=== PATIENT | female | born 1980 | race Hispanic/Latino ===

== ENCOUNTER 2019-10-05 17:43 | Emergency (ER) | payer OTHER, SELFPAY ==
[2019-10-06 17:14] LABS: SARS-CoV-2 MS2 Positive; SARS-CoV-2 N Gene Positive; SARS-CoV-2 S Gene Positive; SARS-CoV-2 orf1ab Positive
== END 2019-10-05 19:07 | disposition home or self-care (01) ==
LOC: MADERS 17:43
DX: U07.1 COVID-19 (principal); R05 Cough; R50.9 Fever, unspecified; Z79.899 Other long term (current) drug therapy
CPT/HCPCS: 87635; 99283; U0003

== ENCOUNTER 2020-01-03 18:05 | Emergency (ER) | payer SELFPAY | END 2020-01-03 18:50 | disposition home or self-care (01) | LOC: MADERS 18:05 | DX: M26.603 Bilateral temporomandibular joint disorder, unspecified (principal) | CPT/HCPCS: 99282 ==

== ENCOUNTER 2020-02-29 17:35 | Emergency (ER) | payer SELFPAY ==
[2020-02-29] MEDS ORDERED: predniSONE 20 MG TAB ONE (18:15)
== END 2020-02-29 18:25 | disposition home or self-care (01) ==
LOC: MADERS 17:35
DX: L25.9 Unspecified contact dermatitis, unspecified cause (principal); R60.0 Localized edema
CPT/HCPCS: 99282; J7512

== ENCOUNTER 2020-03-12 12:40 | Emergency (ER) | payer SELFPAY ==
[2020-03-12] MEDS ORDERED: Sulfameth/Trimethoprim DS 800-160mg TAB ONE (13:08)
== END 2020-03-12 13:14 | disposition home or self-care (01) ==
LOC: MADERS 12:40
DX: S61.501D Unspecified open wound of right wrist, subsequent encounter (principal); L03.113 Cellulitis of right upper limb
CPT/HCPCS: 99283

== ENCOUNTER 2021-09-25 11:53 | Emergency (ER) | payer SELFPAY ==
[2021-09-25] MEDS ORDERED: Iopamidol 370 76% 100 ML VIAL ONE (12:52)
[2021-09-25 13:00] LABS: ALT (SGPT) 31 U/L (8-55); AST (SGOT) 26 U/L (5-34); Albumin 4.3 g/dL (3.5-5.0); Alkaline Phosphatase 67 U/L (40-110); Anion Gap 17 mmol/L (10-20); BUN (Urea Nitrogen) 10 mg/dL (7.0-18.7); Bilirubin, Total 1.3 mg/dL (0.2-1.2); Calc. Creatinine Clearance 0 mL/min (70-130); Calcium 9.2 mg/dL (7.8-10.44); Carbon Dioxide 22 mmol/L (22-29); Chloride 106 mmol/L (98-107); Globulin 3.5 g/dL (2.4-3.5); Glucose 110 mg/dL (70-105); Lipase 7 U/L (8-78); Protein, Total 7.8 g/dL (6.0-8.3); Sodium 142 mmol/L (136-145)
[2021-09-25 13:01] LABS: BHCG - Serum Negative (NEGATIVE); Pregs Control Background? CLEAR/WHITE (CLR/WHITE); Pregs Control Bar Appear? YES (CONTROL BAR)
[2021-09-25 13:08] LABS: Acetaminophen Less than 10.0 mcg/mL (10.0-30.0); Alcohol Less than 10 mg/dL (Less than 10); Magnesium 1.8 mg/dL (1.6-2.6); Salicylate Less than 8.0 mg/dL (15.0-30.0)
[2021-09-25 13:14] LABS: Potassium 2.9 mmol/L (3.5-5.1)
[2021-09-25] MEDS ORDERED: Potassium Chloride 20 MEQ TAB ONE (13:44)
[2021-09-25 13:45] LABS: Band 1 % (5-11); Hemoglobin 13.1 g/dL (12.0-16.0); Lymphocytes 6 % (21-51); MDiff Complete? YES; Mean Corpuscular HGB CONC 32.1 g/dL (32.0-36.0); Mean Corpuscular Hemoglobin 27.9 pg (27.0-31.0); Mean Corpuscular Volume 86.8 fL (78.0-98.0); Mean Platelet Volume 7.8 fL (7.4-10.4); Monocytes 6 % (0-10); Neutrophil 87 % (42-75); Platelet Count 374 thou/uL (130-400); Platelet Morphology Comment Appears Adequate; RBC Distribution Width 12.6 % (11.5-14.5); RBC Morphology Normal; Red Blood Cell (RBC) Count 4.71 mill/uL (4.20-5.40)
[2021-09-25 13:49] LABS: Bilirubin Negative (Negative); Blood, Urine Moderate (Negative); Clarity Slightly Cloudy (Clear); Glucose, Urine (Dipstick) Negative (Negative); Ketone, Urine Negative (Negative); Leukocyte Negative (Negative); Nitrite Negative (Negative); Protein, Urine (Dipstick) > or equal to 300 mg/dL (Neg-Trace)
[2021-09-25 13:54] LABS: Bacteria/HPF 1+ HPF (None Seen); WBC/HPF 0-3 HPF (0-3)
[2021-09-25 13:57] LABS: Amphetamine Detected (NotDetected); Barbiturates Screen Not Detected (NotDetected); Benzodiazepine Screen Not Detected (NotDetected); Cocaine Metabolite Screen Not Detected (NotDetected); Medtox Control Line Valid? VALID (VALID); Methadone Not Detected (NotDetected); Methamphetamine Detected (NotDetected); Opiate Screen Not Detected (NotDetected); Oxycodone Screen Not Detected (NotDetected); Phencyclidine (PCP) Not Detected (NotDetected); THC/Cannabinoid Screen Not Detected (NotDetected); Tricyclic Screen Not Detected (NotDetected)
== END 2021-09-25 14:17 ==
LOC: MADERS 11:53
DX: F15.129 Other stimulant abuse with intoxication, unspecified (principal); E87.6 Hypokalemia
CPT/HCPCS: 70450; 71260; 72125; 74177; 80053; 80306; 80307; 81003; 81015; 83690; 83735; 84484; 84703; 85025; 93005; Q9967